=== PATIENT | female | born 1990 | race Caucasian/White ===

== ENCOUNTER 2018-08-08 04:00 | Emergency (ER) | payer OTHER, BC ==
[~2018-08-08] VITALS: Ht 165.1 cm; Wt 72.7 kg
[2018-08-08] MEDS ORDERED: TETRACAINE 0.5% OPHTH SOLN 4ML OS ONE (04:15)
[2018-08-08] MEDS ORDERED: FLUORESCEIN OPHTH 1 MG STRIP OS ONE (06:00)
[2018-08-08] MEDS ORDERED: TOBRADEX OPHTH SUSP 2.5 ML OS ONE (07:00)
[2018-08-08] MEDS ORDERED: IBUP80TA PO (07:13)
[2018-08-08] MEDS ORDERED: TOBRSUS41 OS (07:13)
[2018-08-08] MEDS ORDERED: IBUPROFEN 600 MG TAB PO ONE (07:30)
[2018-08-08 07:39] VITALS: BP 140/73
== END 2018-08-08 07:40 | disposition home or self-care (01) ==
LOC: M ED 04:00
DX: H16.002 Unspecified corneal ulcer, left eye (principal); T54.3X1A Toxic effect of corrosive alkalis and alkali-like substances, accidental (unintentional), initial encounter; Y92.9 Unspecified place or not applicable; Y93.9 Activity, unspecified